=== PATIENT | female | born 1980 | race Caucasian/White ===

== ENCOUNTER 2025-10-22 09:59 | Emergency (ER) | payer BC ==
[~2025-10-22] VITALS: Ht 167.6 cm; Wt 77.1 kg
[2025-10-22 10:14] VITALS: BP 121/79; TEMP 98.6
[2025-10-22] MEDS ORDERED: CLIN300C12 PO (10:19)
[2025-10-22 10:23] VITALS: O2SAT 96
== END 2025-10-22 10:24 | disposition home or self-care (01) ==
LOC: ER 09:59
DX: L08.0 Pyoderma (principal)